=== PATIENT | male | born 1960 | race Hispanic/Latino ===

== ENCOUNTER 2023-01-20 06:25 | Day surgery (SDC) | payer OTHER ==
[2023-01-20] MEDS ORDERED: Ringers Lactate 1,000 ML IV ONE (06:42)
[2023-01-20] MEDS ORDERED: LIDOCAINE 1% MPF 5 ML VIAL ONE (07:32)
[2023-01-20] MEDS ORDERED: propofoL 200 MG/20 ML VIAL IV ONE (07:32)
[2023-01-20 08:16] VITALS: O2SAT 99
[2023-01-20 08:17] VITALS: BP 103/72; TEMP 97.5
== END 2023-01-20 08:20 | disposition home or self-care (01) ==
LOC: OR 06:25
PROVIDERS: ATTEND Surgery
PROC: 0DJD8ZZ Inspection of Lower Intestinal Tract, Via Natural or Artificial Opening Endoscopic (ICD-10-PCS; principal; 2023-01-20 07:30)
DX: R10.9 Unspecified abdominal pain (principal); E78.00 Pure hypercholesterolemia, unspecified; I51.9 Heart disease, unspecified; K64.8 Other hemorrhoids; K64.4 Residual hemorrhoidal skin tags
CPT/HCPCS: 45378; J2704; J2001; J7120

== ENCOUNTER 2023-01-27 08:26 | Day surgery (SDC) | payer OTHER ==
[2023-01-27] MEDS ORDERED: Ringers Lactate 1,000 ML IV ONE (08:34)
[2023-01-27 08:35] LABS: Absolute Lymphocytes (CBC) 1.6 K/uL (0.7-4.9); Hematocrit 46.7 % (39.6-49.0); Lymphocytes % 32.9 % (15.3-44.8); MCV 91.1 fL (80-100); MPV 8.2 fL (7.6-11.3); RBC Red Blood Cell Count 5.12 M/uL (4.33-5.43)
--- NOTE | 2023-01-27 08:37 | RAD REPORT ---
EXAM DESCRIPTION: RAD - Chest Pa And Lat (2 Views) - 01/27/2023 8:27 am CLINICAL HISTORY: Pre op pending cholecystectomy Chest pain. COMPARISON: No comparisons FINDINGS: The lungs are clear. The heart is normal in size. No displaced fractures. IMPRESSION: No acute or concerning finding suspected.
[2023-01-27 08:53] LABS: Albumin 3.8 g/dL (3.4-5.0); Bilirubin Direct 0.1 mg/dL (0-0.2); Bilirubin Total 0.5 mg/dL (0.2-1.0); Potassium 4.5 mEq/L (3.5-5.1); Protein, Total 8.1 g/dL (6.4-8.2)
[2023-01-27] MEDS: CEFOXITIN SODIUM 1 GM/VIAL ONE ×2 (09:25→09:43)
[2023-01-27] MEDS ORDERED: MIDAZOLAM HCL 2 MG/2 ML INJ ONE (09:27)
[2023-01-27] MEDS ORDERED: ROCURONIUM 50 MG/5 ML VIAL IV ONE (09:27)
[2023-01-27] MEDS ORDERED: KETOROLAC 30 MG/ML INJ ONE (09:27)
[2023-01-27] MEDS ORDERED: FENTANYL CITR 100 MCG/2 ML ONE (09:27)
[2023-01-27] MEDS ORDERED: propofoL 200 MG/20 ML VIAL IV ONE (09:27)
[2023-01-27] MEDS ORDERED: ONDANSETRON 4 MG/2 ML VIAL ONE (09:32)
[2023-01-27] MEDS ORDERED: LIDOCAINE 2% MPF 5 ML VIAL ONE (09:32)
[2023-01-27] MEDS ORDERED: NEOSTIGMINE 1 MG/ML -10 ML VIAL ONE (10:09)
[2023-01-27] MEDS ORDERED: GLYCOPYRROLATE 0.2 MG/ML SYR ONE ×2 (10:09→10:14)
--- NOTE | 2023-01-27 10:09 | P.BOP ---
Preoperative diagnosis: gallbladder wall mass / adenomyomatosis Postoperative diagnosis: same Primary procedure: Laparoscopic cholecystectomy Surveillance Dual Rate Officer: LUCIO SILVEIRA (COATER ASSOCIATE) Estimated blood loss: <10cc Specimen: gb Findings: as above Anesthesia: General Complications: None Transferred to: Recovery Room Condition: Good
[2023-01-27] MEDS ORDERED: Mastisol Adhesive Liq ONE (10:13)
[2023-01-27 10:33] VITALS: O2SAT 100
[2023-01-27 12:25] VITALS: BP 140/78; TEMP 96
--- NOTE | 2023-01-27 13:18 | DS ---
Date of Discharge: 01/27/2023 Diagnoses: Gallbladder wall mass, possible adenomyomatosis, possible cholecystitis. Procedure: Laparoscopic cholecystectomy. Disposition: Home. Activity: As tolerated. No heavy lifting. Plan: Follow up in my office in 1 week. Call for appointment at [phone]. Keep area dry for 48 padmini rs, then may shower. Keep Steri-Strips intact. ARBEN/RADHA Voice ID: [id number] Report ID: [id number]
--- NOTE | 2023-01-27 13:18 | OP ---
Date of Procedure: 01/27/2023 Surgeon: Gurwinder Borjas MD Clay Dry Press Helper: Lola Juares. Preoperative Diagnoses: Gallbladder wall mass/adenomyomatosis, epigastric pain. Postoperative Diagnosis: Gallbladder wall mass/adenomyomatosis, epigastric pain. Procedure: Laparoscopic cholecystectomy. Estimated Blood Loss: Less than 10 mL. Specimen: Gallbladder. Finding: As above. Anesthesia: General plus local. Complications: None. Indication: This is the case of a 62-year-old patient, who comes to us with multiple problems. One of them include a normal gallbladder wall mass with some epigastric pain, unable to say if this is ch olecystitis versus adenomyomatosis versus gallbladder wall mass. The patient was explained the diffe rential diagnosis. He thought about it and he wants his gallbladder removed. The benefits, alternat elsa, and risks of laparoscopic possible open cholecystectomy fully explained, which include, but not limited to infection, bleeding, damage to adjacent structures, anesthesia complication, choledocholi thiasis, bile leak, pancreatitis, IA, and even . He also understands this may not relieve any s ymptoms. He might need more than one surgical intervention. He understood, signed a consent. Procedure In Detail: The patient was brought to the operating room, placed in supine position. Anes thesia was without complication. Abdominal area was prepped and draped in the usual sterile fashion. Marcaine 0.5% was injected for local anesthetic followed by sharp incision of the skin in the periu mbilical region. The incision was carried down to fascia, which was opened under direct vision. Per itoneum was encountered, opened under direct vision. Vicryl #1 placed inside of the fascia. Jef trocar was carefully introduced and pneumoperitoneum was obtained. I placed 3 more trocars, 5 mm eac h one of them in the epigastric right upper quadrant under direct visualization. This allowed me to put a grasper in the fundus of the gallbladder, another grasper in the infundibulum retracting the ga llbladder in the inferolateral fashion, exposing the triangle of Calot, and obtaining critical view. Cystic duct and cystic artery were clearly isolated, freed circumferentially and a connection betwee n those and the gallbladder were clearly identified. I proceeded to ligate those by using at least 3 clips proximal, 1 clip distal, ligation in the middle. Same was done with the cystic artery. No bi le leak. No bleeding. The gallbladder was removed from the liver using the Bovie cauterizer and rem gurmeet from abdominal cavity using EndoCatch through the umbilical incision. The area was inspected on ce again. No bile leak. No bleeding. At that moment, I proceeded to remove the trocars under direc t vision. Deflated pneumoperitoneum. Closed the fascia with #1 Vicryl. Irrigated subcutaneous tiss ue, closed that with 3-0 chromic and skin in a subcuticular fashion with 3-0 chromic and Steri-Strips on top. Sponge count, instrument counts correct. The patient tolerated the procedure well. The pa tient was sent to recovery in stable condition. ARBEN/RADHA Voice ID: [id number] Report ID: [id number]
--- NOTE | 2023-01-28 16:48 | EKG ---
Test Date: 2023-01-27 Test Time: 08:12:38 Forensic Psychologist: ISIDRO MEASUREMENT RESULTS: Intervals: Rate: 61 MT: 162 QRSD: 88 QT: 396 QTc: 398 [place]: P: 71 MT: 162 QRS: 64 T: 63 INTERPRETIVE STATEMENTS: Normal sinus rhythm Normal ECG No previous ECG available for comparison Electronically Signed On 01-28-23 16:45:56 CDT by Kalen Quach
== END 2023-01-27 11:54 | disposition home or self-care (01) ==
LOC: OR 08:26
PROVIDERS: ATTEND Surgery
PROC: 0FT44ZZ Resection of Gallbladder, Percutaneous Endoscopic Approach (ICD-10-PCS; principal; 2023-01-27 10:15)
DX: K81.1 Chronic cholecystitis (principal); K82.8 Other specified diseases of gallbladder; D13.5 Benign neoplasm of extrahepatic bile ducts; Z82.49 Family history of ischemic heart disease and other diseases of the circulatory system
CPT/HCPCS: 36415; 71046; 80048; 80076; 83690; 85025; 88304; 93005; J0694; J2001; J2250; J2405; J2704; J2710; J3010; J7120

== ENCOUNTER 2023-03-31 07:36 | Day surgery (SDC) | payer OTHER ==
[2023-03-25 15:04] LABS: Absolute Lymphocytes (CBC) 1.8 K/uL (0.7-4.9); Hematocrit 42.5 % (39.6-49.0); Lymphocytes % 29.6 % (15.3-44.8); MCV 90.4 fL (80-100); MPV 8.3 fL (7.6-11.3)
[2023-03-25 15:24] LABS: Potassium 4.4 mEq/L (3.5-5.1)
[2023-03-31] MEDS ORDERED: Ringers Lactate 1,000 ML IV ONE (08:27)
[2023-03-31] MEDS ORDERED: MIDAZOLAM HCL 2 MG/2 ML INJ ONE (08:31)
[2023-03-31] MEDS ORDERED: FENTANYL CITR 100 MCG/2 ML ONE (08:31)
[2023-03-31] MEDS ORDERED: LIDOCAINE 2% MPF 5 ML VIAL ONE (08:31)
[2023-03-31] MEDS ORDERED: propofoL 200 MG/20 ML VIAL IV ONE (08:31)
[2023-03-31] MEDS ORDERED: KETOROLAC 30 MG/ML INJ ONE (08:31)
[2023-03-31] MEDS ORDERED: ROCURONIUM 50 MG/5 ML VIAL IV ONE (08:31)
[2023-03-31] MEDS ORDERED: ONDANSETRON 4 MG/2 ML VIAL ONE (08:31)
[2023-03-31] MEDS: CEFAZOLIN SODIUM 1 GM/VIAL ONE ×3 (09:25→11:20)
[2023-03-31] MEDS ORDERED: Mastisol Adhesive Liq ONE (11:55)
--- NOTE | 2023-03-31 12:02 | P.BOP ---
Preoperative diagnosis: bilateral tender inguinal hernia Postoperative diagnosis: same Primary procedure: Laparoscopic repair right and left inguinal hernias with mesh Professor Of Psychiatry: LUCIO SILVEIRA (THERMITE WELDER) Estimated blood loss: <10cc Specimen: none Findings: as above Anesthesia: General Complications: None Drain(s): Other (3d mesh x 2) Transferred to: Recovery Room Condition: Good
[2023-03-31 12:31] VITALS: O2SAT 98
[2023-03-31] MEDS ORDERED: TAMSULOSIN 0.4 MG SR CAP ONE (13:43)
[2023-03-31] MEDS ORDERED: CODEINE 30MG/APAP 300MG TAB ONE (13:47)
[2023-03-31 14:33] VITALS: BP 121/74; TEMP 97
--- NOTE | 2023-04-05 10:37 | OP ---
Date of Procedure: 04/01/2023 Surgeon: Gurwinder Borjas MD Gasoline Truck Crane Operator: Lola Juares. Preoperative Diagnosis: Bilateral tender inguinal hernias. Postoperative Diagnosis: Bilateral tender inguinal hernias. Procedure: Laparoscopic repair of right and left inguinal hernia with mesh. Estimated Blood Loss: Less than 10 mL. Specimen: None. Findings: Bilateral inguinal hernias. Anesthesia: General plus local. Complications: None. Implant: A 3D mesh x2. Indication: This is the case of a 62-year-old patient with tender bilateral inguinal hernias. The b enefits, alternatives, and risks of laparoscopic versus open repair with mesh fully explained, which include, but not limited to infection, bleeding, damage to adjacent structures, anesthesia complicati on, recurrence, chronic pain, chronic numbness, [place], and even . He also understands this may not relieve any symptoms. He might need more than one surgical intervention. He understood, signed a c onsent. Procedure In Detail: The patient was brought to the operating room, placed in supine position. Anes thesia was done without complication. A time-out was called. Abdomen and genitalia were prepped and draped in the usual sterile fashion. Marcaine 0.5% was injected for local anesthetic followed by sh dorothy incision of the skin in the infraumbilical region. The incision was carried down until we find t he anterior rectus sheath on the right side. The anterior rectus sheath was opened and muscle retrac joseph laterally to expose the posterior rectus sheath. The extraperitoneal space was gently developed with the help of blunt dissection and the Spacemaker balloon trocar was placed in that area and direc joseph toward the pubis symphysis under direct visualization with the laparoscope. The balloon was infl ated under direct visualization to create the extraperitoneal space. After that, we deflated the bal loon and removed it and then we insufflated the region. We were able to place a 5 mm trocar at the a rosendo of the pubis symphysis and another senior living between the first and the second 1 under direct visual ization with the laparoscope. The preperitoneal space was further developed by exposing the inferior epigastric vessels keeping them anterior. Nicholas ligament was dissected laterally to the junction w ith the iliac veins. The dissection continued inferiorly to the iliopubic tract avoiding damage to t he femoral branch of the genitofemoral nerve and lateral femoral cutaneous nerve. The cord structure s were skeletonized carefully. The hernia sac was clearly identified and retracted into the peritone al space gentle. After that, we proceeded then to go into the opposite side of the hernia sac, the d issection sac in the same except the hernia sac on the left side is bigger than the right side. Stil l, we skeletonized the cord structures making sure we preserved the blood supply and spermatic cord t oo. The hernia sac was retracted carefully into the peritoneal space. Then, after that, I proceeded to introduce through the umbilical trocar a 3D mesh. The mesh was placed along the working space to cover direct and indirect spaces. The mesh was secured in place with SorbaFix lateral and superior to the iliopubic tract and inferior and medial to the Nicholas ligament. No bleeding. At that moment, we proceeded then to go to the right side and we proceeded to place a 3D mesh in that region using t he same technique. After assuring hemostasis, we proceeded then to deflate the area under direct vis ualization. Trocars were removed. Vicryl #1 was used to close the anterior rectus sheath and the sk in was approximated with 3-0 chromic. The patient tolerated the procedure well. The patient sent to recovery in stable condition. ARBEN/RADHA Voice ID: [id number] Report ID: [id number]
--- NOTE | 2023-04-05 10:37 | DS ---
Date of Discharge: 03/31/2023 Diagnosis: Bilateral tender inguinal hernias. Procedure: Laparoscopic repair of right and left inguinal hernia with mesh. Disposition: Home. Activity: As tolerated. No heavy lifting. Plan: Follow up in my office in 1 week. Call for appointment at [phone]. Keep area dry for 48 padmini rs, then may shower. Cold compress to bilateral inguinal regions for 24 hours. ARBEN/RADHA Voice ID: [id number] Report ID: [id number]
== END 2023-03-31 14:15 | disposition home or self-care (01) ==
LOC: PRE 07:36
PROVIDERS: ATTEND Surgery
PROC: 0YUA4JZ Supplement Bilateral Inguinal Region with Synthetic Substitute, Percutaneous Endoscopic Approach (ICD-10-PCS; principal; 2023-03-31 09:45)
DX: K40.20 Bilateral inguinal hernia, without obstruction or gangrene, not specified as recurrent (principal)
CPT/HCPCS: 85025; 80048; 36415; 49650; J2704; J2001; J2250; J3010; J2405; J7120; J0690